=== PATIENT | female | born 1925 | race Caucasian/White ===

== ENCOUNTER 2016-06-20 14:41 | Inpatient (IN) | payer MEDICARE, BC ==
--- NOTE | ~2016-06-20 | DS ---
Discharge Summary [facility] [id number] [place]. [address] NAME: CHRISTINE BRENNAN : [birth year] STATUS : DIS IN PAT#: [id number] AGE: 89 ADM/REG DATE : 06/20/16 MR#: [id number] REPORT SERV DATE: 06/23/16 DICTATED BY: MUSHTAQ WHEELER DATE: 06/23/16 REPORT STATUS : Draft TRANSCRIBED BY: MODL DATE: 06/23/16 ADMISSION DATE: 06/20/2016 DISCHARGE DATE: 06/23/2016 DISCHARGE DIAGNOSES: 1. Urinary tract infection with Escherichia coli, sensitive to fluoroquinolones. 2. Sepsis, now resolved. 3. Acute kidney injury, now resolved. 4. Metabolic encephalopathy, returned back to baseline. 5. Senile dementia. 6. Paroxysmal atrial fibrillation. 7. Hyperlipidemia. 8. Type 2 diabetes mellitus. 9. History of melena and anemia, not on any anticoagulation except Plavix at this time. 10.Cerebrovascular disease, hence the Plavix. CONSULTANTS DURING THIS HOSPITALIZATION: None. INVASIVE PROCEDURES DONE DURING THIS HOSPITALIZATION: None. BRIEF HISTORY OF PRESENT ILLNESS: The patient is an 89-year-old female, referred from Dr. Hilda Bergman's office with a fever of 102, so she was admitted. For detailed history and physical exam, please see note dictated by myself on 06/20/2016. HOSPITAL COURSE: After being admitted to the hospital, this patient was noticed to have acute kidney injury and symptoms of severe sepsis. This patient's blood cultures were done. She was immediately started on Rocephin as it was thought that the likely source of her infection was cystitis in urinary tract. Urine cultures were obtained as well. Lactic acid level was done, which remained fairly low. After aggressive IV fluid resuscitation for 72 hours and treating her with IV antibiotics, this patient continued to improve. Her urine culture returned back as E coli, which was sensitive to everything except penicillin. She was switched to oral fluoroquinolones and is being discharged home in stable condition. DISCHARGE DISPOSITION: Home. DISCHARGE ACTIVITY: As tolerated. DISCHARGE DIET: Low-sodium diet. DISCHARGE MEDICATIONS: Ciprofloxacin 500 mg p.o. b.i.d. for five more days, Plavix 75 mg once daily, iron 325 mg p.o. twice daily, Xalatan 0.005% one drop at bedtime, Namenda 10 mg once at bedtime, pravastatin 40 mg once at supper, propafenone 150 mg three times daily, vitamin C 500 mg twice daily, multivitamins one tablet daily, vitamin B as directed, and aspirin 325 mg daily p.r.n. DISCHARGE FOLLOWUP: With Dr. Hilda Bergman in one week. Discharge Summary [facility] [address] [place]. [address] NAME: CHRISTINE BRENNAN : [birth year] STATUS : DIS IN PAT#: [id number] AGE: 89 ADM/REG DATE : 06/20/16 MR#: [id number] REPORT SERV DATE: 06/23/16 DICTATED BY: MUSHTAQ WHEELER DATE: 06/23/16 REPORT STATUS : Draft TRANSCRIBED BY: KATHIE DATE: 06/23/16 More than 30 minutes was spent planning this patient's discharge, reconciling medications, writing prescriptions, discussing hospital care, and calling Dr. Hilda Bergman to update her care and documenting this discharge. BISMARK/KATHIE Mushtaq Wheeler M.D. / [id number] CC: Jackie Campos M.D.
--- NOTE | ~2016-06-20 | HP ---
History And Physical [facility] [place]. [address] NAME: CHRISTINE BRENNAN : [birth year] STATUS : ADM IN [facility]#: [id number] AGE: 89 ADM/REG DATE : 06/20/16 MR#: [id number] REPORT SERV DATE: 06/20/16 DICTATED BY: MUSHTAQ WHEELER DATE: 06/20/16 REPORT STATUS : Draft TRANSCRIBED BY: MODJason DATE: 06/20/16 DATE OF ADMISSION: 06/20/2016 CHIEF COMPLAINT: Fever. BRIEF HISTORY OF PRESENT ILLNESS: The patient is an 89-year-old white female suffering from advanced dementia, usually fairly ambulatory, presented to Dr. Bergman's office with complaints of fever for the last three days. In the primary care's office, the fever was up to 102 plus, patient was more confused than her baseline. She also had voiced some nausea, vomiting, so she was referred to the hospitalist. When I saw the patient as a direct admission, this patient does not recall having any of those symptoms. The son who is with her is not very helpful in giving any other additional history. Patient says she has just been feeling weak and tired. Her appetite has been poor. She had a high fever and she has also developed some diarrhea. She denied any abdominal pain. She has not had any chest pain, shortness of breath, or any other constitutional symptoms. REVIEW OF SYSTEMS: Otherwise negative. PAST MEDICAL HISTORY: Significant for dementia, type 2 diabetes mellitus, paroxysmal atrial fibrillation, history of melena and chronic anemia, low back pain, hyperlipidemia, glaucoma, and an elevated TSH. PAST SURGICAL HISTORY: Significant for eye surgery and a total abdominal hysterectomy. ALLERGIES: AMOXICILLIN AND CIPRO. HOME MEDICATIONS: Plavix 75 mg once daily, iron 325 mg twice daily, Xalatan eye drops, Namenda 10 mg once daily and 5 mg in the evening, multivitamins, pravastatin 40 mg daily, Rythmol 150 mg three times daily, Timoptic eyedrops, vitamin B Complex, vitamin C. FAMILY HISTORY: Mother with diabetes mellitus and father with cardiac disorder. SOCIAL HISTORY: No use of alcohol, tobacco, or illicit substances. Currently living with her niece. PHYSICAL EXAMINATION: VITAL SIGNS: Blood pressure 109/53, saturation 96% on room air, temperature 98.2, pulse is 82. HEENT: Head is normocephalic, atraumatic. Pupils are equal, round, and reactive to light. Extraocular muscles are intact. Sclerae anicteric. Conjunctivae are normal. Oropharynx without lesion. Tongue protrudes midline. Uvula midline. NECK: Supple. No jugular venous distention. No carotid bruits or thyromegaly is appreciated. No lymphadenopathy in the neck is palpable. HEART: Rhythm is regular. There is a 2/6 soft systolic murmur, best heard in the apical area. No radiation. PMI nondisplaced. History And Physical [address] [place]. [address] NAME: CHRISTINE BRENNAN : [birth year] STATUS : ADM IN [facility]#: [id number] AGE: 89 ADM/REG DATE : 06/20/16 MR#: [id number] REPORT SERV DATE: 06/20/16 DICTATED BY: MUSHTAQ WHEELER DATE: 06/20/16 REPORT STATUS : Draft TRANSCRIBED BY: KATHIE DATE: 06/20/16 LUNGS: Clear to auscultation both anteriorly and in axillary areas. ABDOMEN: Scaphoid, soft, nontender. Good bowel sounds. No rebound or guarding. No organomegaly. EXTREMITIES: Without cyanosis, clubbing, or edema. NEUROLOGICAL: Seems to be grossly intact. This patient is able to get in and out of bed without any difficulty moving all fours, very confused at this time, and unable to provide a decent history. LABS: As reviewed from Dr. Bergman's office; white count is 17,000, hemoglobin of 10.0, hematocrit 31, platelet count of 320,000. Sodium 138, potassium of 4.2, chloride 101, bicarb 25, BUN 29, creatinine 1.58, glucose of 108. Liver function studies are all normal. IMPRESSION: 1. Most likely sepsis. 2. Urinary tract infection. 3. Dementia. 4. Toxic metabolic encephalopathy. 5. Acute kidney injury. 6. Type 2 diabetes mellitus. 7. Paroxysmal atrial fibrillation. 8. History of melena with anemia, so no deep venous thrombosis or venous thromboembolism prophylaxis given. PLAN: The patient will be admitted. Blood cultures and urine cultures have already been done in Dr. Bergman's office and today's labs were done there as well. We will check a lactate level. Check a procalcitonin level. Start the patient on IV Rocephin. Home medications will be addressed when available from pharmacy. Will place patient on IV fluids. Check fingerstick blood glucose at bedtime and before meals. Level 1 sliding scale. The patient is DNR. SV/MODL Mushtaq Wheeler M.D. / [id number] CC: Jackie Campos M.D.
[2016-06-20 13:26] LABS: A/G RATIO 1.2 (0.7-1.9); ALBUMIN 3.3 G/DL (3.5-5.0); BUN (BLOOD UREA NITROGEN) 29 MG/DL (6-23); CALCIUM, SERUM 9.1 MG/DL (8.5-10.4); CHLORIDE, SERUM 101 MMOL/L (96-112); GLOBULIN 2.7 G/DL (2.5-4.1); POTASSIUM, SERUM 4.2 MMOL/L (3.5-5.3); SGOT(AST) 19 U/L (5-40); SGPT(ALT) 15 U/L (5-65); SODIUM, SERUM 138 MMOL/L (135-148); TOTAL BILIRUBIN 0.5 MG/DL (0-1.2)
[2016-06-20 13:41] LABS: ALKALINE PHOSPHATASE 77 U/L (45-117); CO2 (CARBON DIOXIDE) 25 MMOL/L (24-34); CREATININE 1.58 MG/DL (0.55-1.02); GFR AFRICAN AMERICAN 33 ML/MIN (>=60); GFR NON AFRICAN AMERICAN 29 ML/MIN (>=60); GLUCOSE, SERUM 108 MG/DL (60-99)
[~2016-06-20 14:41] MED LIST: *UNABLE1; ACET500CAP PO; ACETASOL HC OT; ALKA SELTZER COLD PO; ASAB PO; CALTRA600D PO; CARD120 PO; CARTIA XT120 MG/24 PO; EYE VITAMINS; IND25 PO; INTEGRA PO; MIRALAXPKT PO; NTG150 SL; PEP20 PO; PLAVIX PO; PRAVAC PO; PRAVACHOL40 MG PO; RYTHMOL150 MG PO; TIMOPTIC0.25 % OP; TYLENOL ARTH650 MG PO; VITAMIN B-12 PO; XALAT OPH
[2016-06-20] MEDS ORDERED: PLAVIX PO (17:58)
[2016-06-20] MEDS ORDERED: RYTHMOL150 MG PO (17:58)
[2016-06-20] MEDS ORDERED: VITAMIN B PO (17:59)
[2016-06-20] MEDS ORDERED: CENTRUM PO (17:59)
[2016-06-20] MEDS ORDERED: FERROUS SULF325 M1 PO (17:59)
[2016-06-20] MEDS ORDERED: VITC500 PO (17:59)
[2016-06-20] MEDS ORDERED: NAMENDA10 MG PO (18:00)
[2016-06-20] MEDS ORDERED: PRAVACHOL40 MG PO (18:00)
[2016-06-20] MEDS ORDERED: XALAT OPH (18:01)
[2016-06-20] MEDS ORDERED: ASA5GR PO (18:02)
[2016-06-21 04:02] LABS: BASOPHILS 0.1 %; BASOPHILS ABSOLUTE 0.01 10/3/uL (0.0-0.16); EOSINOPHILS 0.1 %; EOSINOPHILS ABSOLUTE 0.01 10/3/uL (0.0-0.53); HEMOGLOBIN 8.2 g/dL (12.0-16.0); IMMATURE GRANULOCYTES 0.2 %; IMMATURE GRANULOCYTES ABSOLUTE 0.02 10/3/uL (0.0-0.11); LYMPHOCYTES 5.2 %; LYMPHOCYTES ABSOLUTE 0.56 10/3/uL (0.67-4.30); MEAN CORPUS HGB CONC 32.5 g/dL (32.0-36.0); MEAN CORPUSCULAR HEMOGLOB 29.8 pg (26.0-34.0); MEAN CORPUSCULAR VOLUME 91.6 fL (80-100); MEAN PLATELET VOLUME 9.2 fL (9.2-13.0); MONOCYTES 10.4 %; MONOCYTES ABSOLUTE 1.12 10/3/uL (0.21-1.20); PLATELET COUNT 239 10/3/uL (150-400); RBC DISTRIBUTION WIDTH 14.4 % (12.0-16.0); RED CELL COUNT 2.75 10/6/uL (4.0-5.6)
[2016-06-21 04:03] LABS: HEMATOCRIT 25.2 % (36.0-48.0); MANUAL DIFF NO %; WHITE BLOOD CELLS 10.7 10/3/uL (4.5-10.5)
[2016-06-21 04:16] LABS: BUN (BLOOD UREA NITROGEN) 26 MG/DL (6-23); CALCIUM, SERUM 8.2 MG/DL (8.5-10.4); CHLORIDE, SERUM 104 MMOL/L (96-112); CO2 (CARBON DIOXIDE) 27 MMOL/L (24-34); CREATININE 1.27 MG/DL (0.55-1.02); GFR AFRICAN AMERICAN 43 ML/MIN (>=60); GFR NON AFRICAN AMERICAN 37 ML/MIN (>=60); GLUCOSE, SERUM 120 MG/DL (60-99); PHOSPHORUS, SERUM 2.8 MG/DL (2.5-4.5); POTASSIUM, SERUM 4.1 MMOL/L (3.5-5.3); SODIUM, SERUM 139 MMOL/L (135-148)
[2016-06-21 04:17] LABS: ALBUMIN 2.6 G/DL (3.5-5.0)
[2016-06-22 03:49] LABS: BASOPHILS 0.2 %; BASOPHILS ABSOLUTE 0.01 10/3/uL (0.0-0.16); EOSINOPHILS 0.6 %; EOSINOPHILS ABSOLUTE 0.04 10/3/uL (0.0-0.53); HEMOGLOBIN 7.4 g/dL (12.0-16.0); IMMATURE GRANULOCYTES 0.5 %; IMMATURE GRANULOCYTES ABSOLUTE 0.03 10/3/uL (0.0-0.11); LYMPHOCYTES 7.8 %; LYMPHOCYTES ABSOLUTE 0.48 10/3/uL (0.67-4.30); MEAN CORPUS HGB CONC 33.3 g/dL (32.0-36.0); MEAN CORPUSCULAR HEMOGLOB 29.8 pg (26.0-34.0); MEAN CORPUSCULAR VOLUME 89.5 fL (80-100); MEAN PLATELET VOLUME 9.1 fL (9.2-13.0); MONOCYTES 14.9 %; MONOCYTES ABSOLUTE 0.92 10/3/uL (0.21-1.20); NEUTROPHILS ABSOLUTE 4.71 10/3/uL (2.02-8.40); PLATELET COUNT 199 10/3/uL (150-400); RBC DISTRIBUTION WIDTH 14.4 % (12.0-16.0); RED CELL COUNT 2.48 10/6/uL (4.0-5.6)
[2016-06-22 03:50] LABS: HEMATOCRIT 22.2 % (36.0-48.0); MANUAL DIFF NO %; WHITE BLOOD CELLS 6.2 10/3/uL (4.5-10.5)
[2016-06-22 04:09] LABS: ALBUMIN 2.2 G/DL (3.5-5.0); CALCIUM, SERUM 7.6 MG/DL (8.5-10.4); CHLORIDE, SERUM 111 MMOL/L (96-112); CREATININE 0.78 MG/DL (0.55-1.02); GFR AFRICAN AMERICAN 78 ML/MIN (>=60); GFR NON AFRICAN AMERICAN 67 ML/MIN (>=60); POTASSIUM, SERUM 3.7 MMOL/L (3.5-5.3); SODIUM, SERUM 141 MMOL/L (135-148)
[2016-06-22 04:10] LABS: BUN (BLOOD UREA NITROGEN) 17 MG/DL (6-23); CO2 (CARBON DIOXIDE) 20 MMOL/L (24-34); GLUCOSE, SERUM 84 MG/DL (60-99); PHOSPHORUS, SERUM 1.8 MG/DL (2.5-4.5)
[2016-06-23 05:40] LABS: BUN (BLOOD UREA NITROGEN) 14 MG/DL (6-23); CALCIUM, SERUM 7.8 MG/DL (8.5-10.4); CHLORIDE, SERUM 113 MMOL/L (96-112); CO2 (CARBON DIOXIDE) 21 MMOL/L (24-34); CREATININE 0.72 MG/DL (0.55-1.02); GFR AFRICAN AMERICAN 86 ML/MIN (>=60); GFR NON AFRICAN AMERICAN 74 ML/MIN (>=60); GLUCOSE, SERUM 93 MG/DL (60-99); PHOSPHORUS, SERUM 2.1 MG/DL (2.5-4.5); POTASSIUM, SERUM 3.7 MMOL/L (3.5-5.3); SODIUM, SERUM 144 MMOL/L (135-148)
[2016-06-23] MEDS ORDERED: CIP5 PO (09:19)
== END 2016-06-23 13:00 | disposition home health service (06) | DRG 871 ==
LOC: 4EA 14:41
PROVIDERS: Internal Medicine
DX: A41.9 Sepsis, unspecified organism (principal); G93.41 Metabolic encephalopathy; N17.9 Acute kidney failure, unspecified; I48.0 Paroxysmal atrial fibrillation; N30.90 Cystitis, unspecified without hematuria; F03.90 Unspecified dementia, unspecified severity, without behavioral disturbance, psychotic disturbance, mood disturbance, and anxiety; E11.9 Type 2 diabetes mellitus without complications; B96.20 Unspecified Escherichia coli [E. coli] as the cause of diseases classified elsewhere; E78.5 Hyperlipidemia, unspecified; H40.9 Unspecified glaucoma; I67.9 Cerebrovascular disease, unspecified; Z66 Do not resuscitate; R65.20 Severe sepsis without septic shock; Z88.1 Allergy status to other antibiotic agents; Z79.01 Long term (current) use of anticoagulants; Z83.3 Family history of diabetes mellitus; Z82.49 Family history of ischemic heart disease and other diseases of the circulatory system
CPT/HCPCS: 36415; 71020; 80048; 80053; 80069; 81003; 82962; 83605; 84100; 84145; 85025; 85027; 87040; 87077; 87086; 87186; A9270-GY

== ENCOUNTER 2016-07-04 18:48 | Emergency (ER) | payer MEDICARE, BC ==
[~2016-07-04 18:48] MED LIST changes: +ASA5GR PO; +CENTRUM PO; +CIP5 PO; +FERROUS SULF325 M1 PO; +NAMENDA10 MG PO; +VITAMIN B PO; +VITC500 PO
[2016-07-04 20:42] LABS: BASOPHILS 0.3 %; BASOPHILS ABSOLUTE 0.04 10/3/uL (0.0-0.16); EOSINOPHILS 0.4 %; EOSINOPHILS ABSOLUTE 0.05 10/3/uL (0.0-0.53); HEMOGLOBIN 8.7 g/dL (12.0-16.0); IMMATURE GRANULOCYTES 0.7 %; IMMATURE GRANULOCYTES ABSOLUTE 0.09 10/3/uL (0.0-0.11); LYMPHOCYTES 9.3 %; LYMPHOCYTES ABSOLUTE 1.25 10/3/uL (0.67-4.30); MEAN CORPUSCULAR HEMOGLOB 28.3 pg (26.0-34.0); MEAN CORPUSCULAR VOLUME 89.9 fL (80-100); MEAN PLATELET VOLUME 8.6 fL (9.2-13.0); MONOCYTES ABSOLUTE 0.94 10/3/uL (0.21-1.20); NEUTROPHILS 82.3 %; NEUTROPHILS ABSOLUTE 11.11 10/3/uL (2.02-8.40); RBC DISTRIBUTION WIDTH 16.1 % (12.0-16.0)
[2016-07-04 20:43] LABS: ER CBC TAT 0 Hrs 10 Mins; HEMATOCRIT 27.6 % (36.0-48.0); MANUAL DIFF NO %; MEAN CORPUS HGB CONC 31.5 g/dL (32.0-36.0); PLATELET COUNT 582 10/3/uL (150-400); RED CELL COUNT 3.07 10/6/uL (4.0-5.6); WHITE BLOOD CELLS 13.5 10/3/uL (4.5-10.5)
[2016-07-04 20:49] LABS: INTERNATIONAL NORMAL RATI 1.2 UNITS (-); PARTIAL THROMBO TIME 29.6 SEC (22.5-37.2); PROTIME (NOT ORD) 15.3 SEC (12.0-14.5)
[2016-07-04 20:59] LABS: CALCIUM, SERUM 9.1 MG/DL (8.5-10.4); CHEST PAIN PROFILE TAT 0 Hrs 26 Mins; CHLORIDE, SERUM 107 MMOL/L (96-112); CO2 (CARBON DIOXIDE) 30 MMOL/L (24-34); CREATININE 1.18 MG/DL (0.55-1.02); GFR AFRICAN AMERICAN 47 ML/MIN (>=60); GFR NON AFRICAN AMERICAN 41 ML/MIN (>=60); GLUCOSE, SERUM 111 MG/DL (60-99); TROPONIN I <0.02 NG/ML (<0.05)
[2016-07-04 21:01] LABS: BUN (BLOOD UREA NITROGEN) 21 MG/DL (6-23); SODIUM, SERUM 140 MMOL/L (135-148)
[2016-07-04 22:03] LABS: ASCORBIC ACID (UR NOT ORDER) 40 (NEG); BILIRUBIN, URINE NEGATIVE (NEG); ER URINALYSIS TAT 0 Hrs 08 Mins; KETONE, URINE NEGATIVE (NEG); LEUKOCYTE ESTERASE(NOT OR LARGE (NEG); NITRITE (URINE) NEG (NEG); WBC (NOT ORDERED) (RFLEX) 102 (0-5)
[2016-07-04 23:16] LABS: PROCALCITONIN <0.05 ng/mL (<0.5)
== END 2016-07-05 00:14 | disposition home or self-care (01) ==
LOC: ER 18:48
PROVIDERS: Nurse Practitioner Acute Care
DX: N39.0 Urinary tract infection, site not specified (principal); I48.91 Unspecified atrial fibrillation; F03.90 Unspecified dementia, unspecified severity, without behavioral disturbance, psychotic disturbance, mood disturbance, and anxiety; E11.39 Type 2 diabetes mellitus with other diabetic ophthalmic complication; H40.9 Unspecified glaucoma; D64.9 Anemia, unspecified; Z88.8 Allergy status to other drugs, medicaments and biological substances; Z88.1 Allergy status to other antibiotic agents; Z79.82 Long term (current) use of aspirin; Z79.899 Other long term (current) drug therapy
CPT/HCPCS: 70450; 71010; 80048; 81001; 83605; 83735; 84145; 84484; 85025; 85610; 85730; 87086; 93005; 99285; A9270-GY